=== PATIENT | female | born 1965 | race Caucasian/White ===

== ENCOUNTER 2017-04-25 06:08 | Day surgery (SDC) | payer BC ==
[~2017-04-25] VITALS: Ht 154.9 cm; Wt 49.9 kg
[2017-04-25] VITALS (8 sets, daily range): BP systolic 109–133; BP diastolic 60–77
--- NOTE | 2017-04-25 06:03 | Anethesia Preoperative Eval ---
Anesthesia Pre-op PMH/ROS General Date of Evaluation: Apr 25, 2017 Time of Evaluation: 06:00 Anesthesiologist: brian ASA Score: ASA 2 Mallampati Score Class I : Soft palate, uvula, fauces, pillars visible Class II: Soft palate, uvula, fauces visible Class III: Soft palate, base of uvula visible Class IV: Only hard plate visible Mallampati Classification: Class II Surgeon: sonam Diagnosis: colon screening Surgical Procedure: colonoscopy Anesthesia History: none, emergence delirium - following tonillectomy 40 years ago, most recently had a procedure with no problems with anesthesia Social History: smoking - nonsmoker Family History: no anesthesia problems Allergies: Coded Allergies: No Known Allergies (Unverified , 04/22/17) Medications: see eMAR Past Medical History Gastrointestinal/Genitourinary: Reports: other - miscarriage x3, in vitro fertilization, LMP 03/23/2017 Hematology/Immune: Reports: bleeding disorder PSxH Narrative: in vitro fertilization, tonsillectomy, breast bx Anesthesia Pre-op Phys. Exam Physician Exam Last Vital Signs Date Time Temp Pulse Resp B/P Pulse Ox O2 Delivery O2 Flow Rate FiO2 04/25/17 06:50 97.6 66 19 133/74 100 Room Air Constitutional: NAD Neurologic: CN 2-12 intact Cardiovascular: RRR Respiratory: CTA Gastrointestinal: S/NT/ND Airway Exam Mallampati Score: Class II MO: full Neck: supple TMD: 2fb ROM: full Teeth: intact Anesthesia Pre-op A/P Risk Assessment & Plan Assessment: asa2 Plan: mac Status Change Before Surgery: No Pre-Antibiotics Drug: BLANK Hunter Apr 25, 2017 06:03
[~2017-04-25 06:08] MED LIST: NKM
[2017-04-25] MEDS ORDERED: Lidocaine 1% MPF 10mg/ml 5ml ONE (07:00)
[2017-04-25] MEDS ORDERED: LR 1000ml 1,000 ML IVLG SCH (07:00)
[2017-04-25] MEDS ORDERED: Propofol 10mg/ml 20ml IV ONE (07:00)
[2017-04-25] MEDS ORDERED: LR 1000ml ONE (07:00)
[2017-04-25] MEDS ORDERED: Midazolam 2mg/2ml Inj IVP PRN (07:15)
[2017-04-25] MEDS ORDERED: Atropine Inj 1mg/10ml Syr IV PRN (07:15)
[2017-04-25] MEDS ORDERED: Hydromorphone 0.5mg/0.5ml inj IVP PRN (07:15)
[2017-04-25] MEDS ORDERED: DiphenhydrAMINE 50mg/ml Inj IVP PRN (07:15)
--- NOTE | 2017-04-25 07:18 | Pre-Procedure Note/Attestation ---
Pre-Procedure Note/Attestation Complete Prior to Procedure Planned Procedure: not applicable Procedure Narrative: colonoscopy Indications for Procedure Pre-Operative Diagnosis: screening, loose stools Attestation I attest that I discussed the nature of the procedure; its benefits; risks and complications; and alternatives (and the risks and benefits of such alternatives ), prior to the procedure, with the patient (or the patient's legal insurance claim representative). I attest that, if there was a reasonable possibility of needing a blood transfusion, the patient (or the patient's legal insurance claim representative) was given the [facility] standardized written summary, pursuant to the [place] Blood Safety Act ([place] Health and Safety Code # 1645, as amended). I attest that I re-evaluated the patient just prior to the surgery and that there has been no change in the patient's H&P, except as documented below: CAROL LEE Apr 25, 2017 07:18
--- NOTE | 2017-04-25 07:24 | Short Stay Surgery H&P ---
History of Present Illness History of Present Illness Chief Complaint Patient here for screening colonoscopy. See attached H&P for details States that she has chronic loose 1 BM/day, and wants to have random colon biopsies done at time of procedure to r/o colon pathology. Denies BRBPR, weight loss. MIGUEL A Pires is a 52 year old female who was admitted on for Colon Screening Patient History Allergies: Coded Allergies: No Known Allergies (Unverified , 04/22/17) PAST MEDICAL HISTORY: Past Surgeries: Social History: Medication History Scheduled No Known Medications* (NKM - No Known Medications*), 0 ., (Reported) Physical Exam Vital Signs Last Vital Signs Date Time Temp Pulse Resp B/P Pulse Ox O2 Delivery O2 Flow Rate FiO2 04/25/17 06:50 97.6 66 19 133/74 100 Room Air Plan Attestation Are the patient's medical conditions optimized for surgery? CAROL LEE Apr 25, 2017 07:24
--- NOTE | 2017-04-25 08:02 | Immediate Post-Op Evaluation ---
Immediate Post-Op Evalulation Immediate Post-Op Evalulation Procedure: colonoscopy Date of Evaluation: Apr 25, 2017 Time of Evaluation: 08:02 IV Fluids: lr 250ml Blood Products: none Estimated Blood Loss: negligible Blood Pressure Systolic: 109 Blood Pressure Diastolic: 64 Pulse Rate: 58 Respiratory Rate: 18 O2 Sat by Pulse Oximetry: 100 Temperature (Fahrenheit): 97.5 Pain Score (1-10): 0 Nausea: No Vomiting: No Complications none Patient Status: awake, reacts, patent Hydration Status: adequate Drug: BLANK Hunter Apr 25, 2017 08:02
--- NOTE | 2017-04-25 08:04 | 48 Hour Post Anesthesia Eval ---
Post Anesthesia Evaluation Procedure: colonoscopy Date of Evaluation: Apr 25, 2017 Time of Evaluation: 08:04 Blood Pressure Systolic: 120 0: 77 Pulse Rate: 55 Respiratory Rate: 18 Temperature (Fahrenheit): 97.5 O2 Sat by Pulse Oximetry: 100 Airway: patent Nausea: No Vomiting: No Pain Intensity: 0 Hydration Status: adequate Cardiopulmonary Status: stable Mental Status/LOC: patient returned to baseline Post-Anesthesia Complications: none Follow-up care needed: N/A BLANK DUQUE Apr 25, 2017 08:04
--- NOTE | 2017-04-25 09:08 | Endoscopy Procedure Note ---
Endoscopy Procedure Note Indication for Procedure: screen, diarrhea Procedures Performed: colonoscopy Operative Findings/Diagnosis: normal to TI Specimen: yes Pt Tolerated Procedure Well: Yes Estimated Blood Loss: none Anesthesia: MAC, moderate sedation Medication Given: see anesthesia record Implant(s) used?: No 50 yrs or older w/o bx or poly: No 10yrs. F/U not recommended: Yes If not recommended, why?: 10 yrs. F/U needed: Yes 18 years or older w/prev. colo: No <3yrs. since last colonoscopy: No Med reason:<3 yrs.: System Reason:<3 yrs.: Last colonoscopy >= to 3yrs: Yes CAROL LEE Apr 25, 2017 09:08
--- NOTE | 2017-04-25 09:10 | Brief Operative Note ---
Immediate Post Operative Note Operative Note Chief Complaint: screen, loose BM Pre-op Diagnosis: screening, loose stools Procedure: colon /bx Post-op Diagnosis: normal to TI, RND Bx of R and L colon sent to path Surgeon: sonam Anesthesiologist: see record Anesthesia: MAC Specimen: yes Complications: none Condition: stable Estimated Blood Loss: none Drains: none Implant(s) used?: No CAROL LEE Apr 25, 2017 09:09
--- NOTE | 2017-04-25 13:15 | Operative Note - Dictated ---
DATE OF OPERATION: 04/25/2017 GASTROENTEROLOGY PROCEDURE REPORT PROCEDURE: Colonoscopy with biopsy. SURGEON: Ashley Taylor M.D. ANESTHESIA: Please see the separate anesthesiologist notes for details. PRE-ENDOSCOPIC DIAGNOSES: 1. Screening colonoscopy. 2. Chronic once a day loose stools. POST-ENDOSCOPIC DIAGNOSES: 1. Visually normal colonoscopy all the way to the terminal ileum. 2. Status post random biopsy of the right colon and left colon for pathology evaluation. RECOMMENDATIONS: 1. Follow up biopsy results. 2. Outpatient followup. Thank you for asking me to participate in the care of this patient. Ashley Taylor M.D. DR: TIFFANI JOB#: [id number] CC: Lauren Torres M.D.
--- NOTE | 2017-04-27 22:45 | Operative Note - Dictated ---
DATE OF OPERATION: 04/25/2017 GASTROENTEROLOGY PROCEDURE REPORT PROCEDURE: Colonoscopy with biopsy. SURGEON: Ashley Taylor M.D. ANESTHESIA: Please see the separate anesthesiologist notes for details. PRE-ENDOSCOPIC DIAGNOSES: 1. Screening colonoscopy. 2. Once a day loose stools. POST-ENDOSCOPIC DIAGNOSES: 1. Visually normal colonoscopy all the way to the terminal ileum. 2. Status post random biopsy of the right colon and left colon for pathology evaluation. PROCEDURE: The procedure, its risks, indications, alternatives, and possible complications including, but not limited to bleeding, infection, perforation, , and anesthesia complications were explained to the patient and an informed consent was obtained. Diagnostic colonoscope was introduced into the rectum after rectal exam was done and advanced to the terminal ileum without difficulty. The colonoscope was then gradually withdrawn and the mucosa examined carefully. Examination of the colonic mucosa as well as the terminal ileum mucosa did not reveal any abnormalities. Random biopsies of the right colon and left colon were sent for pathology for review. The colonoscope was removed. The patient was sent to recovery in good condition. COMPLICATIONS: None. RECOMMENDATIONS: 1. Follow up biopsy results. 2. Outpatient followup. Thank you for asking me to participate in the care of this patient. Ashley Taylor M.D. DR: MATT JOB#: [id number] CC:
== END 2017-04-25 09:10 | disposition home or self-care (01) ==
LOC: GAS 06:08
DX: Z12.11 Encounter for screening for malignant neoplasm of colon (principal)
CPT/HCPCS: 45380; 81025; J2704; J7120; 94003; 94150